=== PATIENT | female | born 1990 | race Caucasian/White ===

== ENCOUNTER 2024-01-17 10:25 | Inpatient (IN) | payer OTHER ==
[2024-01-17] MEDS ORDERED: METHYLERGONOVINE 0.2 MG/ML VIAL IM PRN (11:06)
[2024-01-17] MEDS ORDERED: fentaNYL 100 MCG/2 ML VIAL IVP PRN (11:06)
[2024-01-17] MEDS ORDERED: OXYTOCIN/SODIUM CHLORIDE 500 ML IV PRN (11:06)
[2024-01-17] MEDS ORDERED: LACTATED RINGERS 1,000 ML IV PRN (11:06)
[2024-01-17] MEDS ORDERED: miSOPROStoL 200 MCG TABLET PR PRN (11:06)
[2024-01-17] MEDS ORDERED: SODIUM CHLORIDE FLUSH 0.9% 10 ML SYRINGE IVP PRN (11:06)
[2024-01-17] MEDS ORDERED: TRANEXAMIC ACID IN NACL 1,000 MG/100 ML BAG IV PRN (11:06)
[2024-01-17] MEDS ORDERED: TERBUTALINE 1 MG/ML VIAL SUBQ PRN (11:06)
[2024-01-17] MEDS ORDERED: CARBOPROST TROMETHAMINE 250 MCG/ML VIAL IM PRN (11:06)
[2024-01-17] MEDS ORDERED: lidocaine 1% 20 ML MDV ID PRN (11:06)
[2024-01-17] MEDS ORDERED: OXYTOCIN 10 UNIT/ML VIAL IM PRN (11:06)
--- NOTE | 2024-01-17 11:14 | HISTORY & PHYSICAL EXAMINATION ---
Admit History - Visit Reason Visit Reason: Membranes rupture - : 3 Parity: 2 Premature: 1 Ectopic: 0 : 0 Care: negative: [facility] - Mother's Labs Mother's Blood Type: positive: A Mother's RH: positive: Positive GBS: positive: Group B Step Negative Rubella Status: positive: Immune - Other Maternal History Other Maternal History: HPI: This 33 yo @ 39+2 weeks by 9+1week ultrasound, discordant from LMP dating. She has been a patient of [facility] for the duration of her which has remained uncomplicated. Today, she felt a gush of fluid and was guided to presented to L&D for triage. Upon arrival her cervix was 5/70/soft and vertex palpable forebag. Agreeable to forebag rupture, clear fluid. We reviewed management options at length, discussed plan of care as per to see if labor will progress on it's own, discussed augmentation with oxytocin vs misoprostol as well. Will reevaluate after in a few hours to assess for progress. She has a questionable history mitral valve prolapse diagnosed as a teenager, but was later told it may have been an inaccurate diagnosis. Between her first and second pregnancies, she was referred to cardiology, had a normal echocardiogram, low risk holter monitor study in the same time frame. Cleared by cardiology. Dating criteria: LMP: 04/04/2023 ---> MAGGIE by LMP 01/09/2024 Initial u/s @ 9+1 wks dates DISCORDANT with LMP dating Final MAGGIE 01/22/2024; serial Exams agree OB Hx: G1: 07/15/2014 VAVD G2: 11/22/2022 G3:current Will accept blood transfusion in medical emergency. bottle packer History: Term NSVB x 1, NSVB x1. Last pap 04/2022. Denies history of gonorrhea, chlamydia, genital herpes, oral herpes or any other STI. Sexual partner does NOT have HSV (oral or genital). Medical Hx: noncontributory Surgical Hx: significant; 2 hand surgeries, 4 knee surgeries, pilonidal cyst removal, tonsillectomy Social: , lives with and children. Sexual behavior: Monogamous with male partner Stopped drinking alcohol due to . Denies current use of tobacco, marijuana or other recreational drugs. Reports that she is safe in current relationship. Family Hx: heart disease, lung disease, cancer, glaucoma, diabetes Denies family history of congenital anomalies, Cystic Fibrosis or chromosomal abnormalities. Allergies: Ketamine, environment Course: A+, antibody sceen negative Rubella immune, Varicella Immune Hep B neg, Hep C neg HIV non-reactive, RPR non-reactive GCCT negative 31# weight gain Genetic screening: FAS: 08/25/2023, WNL. Intrauterine gestation with normal cardiac features. Anterior placenta. EFW 50%. MERLENE normal. glucola: 64 Tdap: 11/02/2023 GBS: neg Physical exam: Head: Normocephalic, atraumatic Heart: RRR Lungs Lung sounds clear, No respiratory distress Abdomen gravid, soft, nontender. EFW 3700 FHR baseline 150, moderate variability, + accelerations, no decelerations Contractions irregular and mild. soft resting tone SVE 5/70/soft, vertex, membranes ruptured (clear) Bilateral LE's 1+ edema. Mood is good. Assessment: 33 yo @ 39.2 weeks gestation 9+1 wk U/S, discordant from LMP (04/04/2023) Early labor FHR Cat I GBS NEG Plan: Admit to [facility] for augmentation of labor. Continuous monitoring. Anticipate . - NST Procedure NST reactive. FHR baseline 150s, moderate variability, + accels, no decels No contractions appreciated via tocometry Meds/Allgy - Home Medications Home Medications: Ambulatory Orders Medication Instructions Recorded Confirmed Home Medications Unobtainable 01/17/24 01/17/24 [HOME MEDICATIONS UNOBTAINABLE] - Allergies Allergies/Adverse Reactions: Allergies Allergy/AdvReac Type Severity Reaction Status Date / Time ketamine AdvReac Anaphylaxis Verified 01/17/24 11:19 Review of Systems - Constitutional Constitutional: denies: Fever, Chills - Eyes Eyes: denies: Blurred vision, Spots in vision, Dipolpia - Cardiovascular Cariovascular: denies: Irregular heart rate, Chest pain, Edema - Respiratory Respiratory: denies: Wheezing, Snoring, SOB at rest - Gastrointestinal Gastrointestinal: denies: Constipation, Diarrhea, Nausea, Vomiting - Genitourinary Genitourinary: denies: Dysuria - Integumentary Integumentary: denies: Rash, Pruritis - Neurological Neurological: denies: Headache - Psychiatric Psychiatric: denies: Depression, Anxiety - All Other Systems All Other Systems: reports: Reviewed and negative Physical - Abdominal Exam Contraction Frequency (min/apart): none Uterine Resting Tone: positive: Soft - Monitoring Heart Rate Baseline: 150 Strip Review: positive: Category I - Presentation Presentation: positive: Vertex - Vaginal Exam Membranes: positive: Membranes intact Dilation (in cm): 5 Station: positive: -2 Cervical Position: positive: Midposition - Speculum Exam Speculum Exam Performed: positive: No Plan for Labor - Plan For Labor I expect patient to be DC'd or transferred within 96 hours.: Yes
[2024-01-17 11:34] LABS: BASOPHILS % (AUTO) 0.2 %; EOSINOPHILS # (AUTO) 0.1 10^3/uL (0.0-0.7); EOSINOPHILS % (AUTO) 0.9 %; HCT - HEMATOCRIT 39.2 % (37.0-47.0); HGB - HEMOGLOBIN 12.9 g/dL (12.0-16.0); LYMPHOCYTES # (AUTO) 2.8 10^3/uL (1.5-3.5); LYMPHOCYTES % (AUTO) 25.8 %; MEAN CORPUSCULAR HEMOGLOBIN 28.1 pg (27.0-31.0); MEAN CORPUSCULAR HGB CONC 32.9 g/dL (32.0-36.0); MEAN CORPUSCULAR VOLUME 85.4 fL (81.0-99.0); MEAN PLATELET VOLUME 11.6 fL (7.9-10.8); MONOCYTES # (AUTO) 0.6 10^3/uL (0.0-1.0); MONOCYTES % (AUTO) 5.8 %; NEUTROPHILS # (AUTO) 7.2 10^3/uL (1.5-6.6); NEUTROPHILS % (AUTO) 66.8 %; PLT - PLATELET COUNT 169 10^3/uL (130-450); RED BLOOD COUNT 4.59 10^6/uL (4.20-5.40); RED CELL DISTRIBUTION WIDTH 13.8 % (12.0-15.0); WHITE BLOOD COUNT 10.8 x10^3/uL (4.8-10.8)
[2024-01-17] MEDS ORDERED: SODIUM CHLORIDE FLUSH 0.9% 10 ML SYRINGE IVP SCH (12:00)
[2024-01-17] MEDS: LACTATED RINGERS 1,000 ML IV SCH (14:01)
[2024-01-17] MEDS: OXYTOCIN/SODIUM CHLORIDE 500 ML IV SCH (14:01)
[2024-01-17] MEDS ORDERED: HYDROCORTISONE 1% CREAM 28 GM TUBE PR PRN (16:19)
--- NOTE | 2024-01-17 16:22 | DELIVERY NOTE ---
Delivery Note - Labor Labor: positive: Spontaneous - Delivery Method Delivery Method: positive: Spontaneous vaginal delivery - Presentation Presentation: positive: OA - occiput anterior - Nuchal Cord Nuchal Cord: positive: None - Amniotic Fluid Description Amniotic Fluid Description: positive: Clear - Episiotomy Type Episiotomy Type: positive: None - Laceration Laceration: positive: None - [place]: positive: Placed in direct skin contact with mother, Suctioned, Stimulated, Warmed, [place] used [place] sex: positive: Male - Cord Cord: positive: 3 vessels - Placenta Placenta: positive: Intact - Estimated Blood Loss Estimated Blood Loss (in cc): 150 - Post Delivery Events Post Delivery Events: positive: Shoulder dystocia - Delivery Comments (Free Text/Narrative) Delivery Comments (Free Text/Narrative): [id number], @39+2 gestation by+1 week ultrasound presented @ 10:30 time with SROM. Cervix was 5/70/-2 and Vertex. GBS Negative. FHR pattern demonstrated 150 baseline in a category I. @13:00 provider to bedside, patient chana only infrequently (mild). Shared decision making utilized to begin oxytocin @1mu/min. After initiation, patient began to contract regularity with increasing intensity, no further titration of oxytocin needed. Unmedicated delivery. Forebag ruptured (clear) @ 11:03. Pushing began spontaneously (presumed complete) at 15:15 in hands and knees. : Normal spontaneous vaginal delivery of a viable male infant on 01/17/24 @ 15:56 in hands and knees, rotational maneuvers used to reduce posterior shoulder. The was placed on maternal abdomen, stimulated, dried and placed skin to skin. Apgars 6 @1 min and 8 @5 minutes weighing 3.364kg. Pitocin administered via IV for hemostasis. The umbilical cord was allowed to stop pulsating at which time it was doubly clamped by delivering provider and cut by FOB. 3VC. Cord blood was obtained. Fundal massage and gently cord traction applied for active management of the third stage, placenta delivered spontaneously and intact @16:05. EBL 150. Fourth stage: Uterine fundus firm and there is no excessive bleeding. The perineum, vagina and cervix were inspected and found to be intact. Vaginal and rectal examination following the repair was done. Tissues well approximated. Skin to skin initiated. Family bonding well. Both mother and baby are in stable condition.
[2024-01-17] MEDS: IBUPROFEN 800 MG TABLET PO SCH (17:26)
[2024-01-17] MEDS: ACETAMINOPHEN 500 MG TABLET PO SCH (17:26)
[2024-01-17] MEDS: WITCH HAZEL/GLYCERIN 1 PAD TOP PRN (17:28)
--- NOTE | 2024-01-17 18:43 | PHARMACY PROGRESS NOTE ---
- Best Possible Medication History Admit Date and Time: 01/17/24 1106 Processed by: Pharmacy Medications reviewed in ED?: No Medication History completed: No Patient Interview: Pt unable to participate As the person ultimately responsible for medication therapy, providers are able to order a medication from an existing home medication list in [facility] via the "Reconcile Routine" prior to Confirmation of that medication by operations support manager. Such practice is discouraged except when the physician, in their clinical judgment, deems that a medical need exists for a medication without regard to previous use.
--- NOTE | 2024-01-18 08:27 | DISCHARGE SUMMARY ---
Discharge Summary Admit Date: 01/17/24 Discharge Date: 01/18/24 Discharging Provider: ALEXA Allen/ JAMEE Gomez Code Status: Attempt Resuscitation Condition at Discharge: Good Discharge Disposition: 01 Home, Self Care - DIAGNOSES Admission Diagnoses: 33 yo @ 39.2 weeks gestation at 91+1 week u/s Discordant from LMP (04/04/2023) Early Labor FHT Cat I GBS NEG - HPI History of Present Illness: Date of Admission 01/17/2024 Date of Discharge 01/18/2024 Diagnosis on admission: 1. 33 yo @ 39.2 weeks gestation 9+1 wk u/s discordant from LMP 2. Early labor 3. FHR Cat I 4. GBS Neg Diagnosis on Discharge 1. 33 yo ppd #1 2. Status post viable male infant 3. Normal course Brief History: She is a patient of [facility] who presented on 01/17/2024 with leaking of amniotic fluid. She A forbag was ruptured and later pitocin at 1mu/min was initated. Labor progressed quickly and she delivered a viable male infant in hands and knees. No medication pain management. She spontaneously delivered a viable male infant @1556 apgars 6 and 8 at 1 and 5 minutes respectively. EBL 150 ml. intact perineum. She has been doing well in her course. She is ambulating and tolerating a regular diet. She is urinating without difficulty and her lochia is normal. Her pain is well controlled without narcotic management. She will be discharged to home today on day 1 with prescriptions for IBU and colace. She intends to follow up with [facility] in 1 week for telehealth. SHe has been given precautions to call if she has any worsening fevers, chills, abdominal pain, increasing bleeding, or foul smelling vaginal lochia. - ALLERGIES Allergies/Adverse Reactions: Allergies Allergy/AdvReac Type Severity Reaction Status Date / Time ketamine AdvReac Anaphylaxis Verified 01/17/24 11:19 - MEDICATIONS Home Medications: Ambulatory Orders Medication Instructions Recorded Confirmed Home Medications Unobtainable 01/17/24 01/17/24 [HOME MEDICATIONS UNOBTAINABLE] - PHYSICAL EXAM AT DISCHARGE General Appearance: positive: No acute distress Eyes Bilateral: positive: Normal inspection Neck: positive: Nml inspection Respiratory: positive: No respiratory distress, Breath sounds nml Cardiovascular: positive: Regular rate & rhythm, No murmur Abdomen: positive: Non-tender Skin: positive: Color nml, No rash Extremities: positive: Full ROM Neurologic/Psychiatric: positive: Oriented x3 - LABS Result Diagrams: 01/17/24 11:25
--- NOTE | 2024-01-18 09:01 | Discharge Plan ---
Discharge Plan Problem Reviewed?: Yes Disposition: Home, Self Care Condition: Good Diet: Regular Activity Restrictions: No Restrictions Shower Restrictions: No Driving Restrictions: No Weight Bearing: Full Weight Instruction Topics: Vaginal After, Self Care, Nutrition No Smoking: If you smoke, Please STOP! Call for help. Follow-up with: Diana Allen CNM, MIRIAM [Provider Admit Priv/Credential] - 1 Week
[2024-01-18 12:10] VITALS: BP 129/75
--- NOTE | 2024-01-18 18:34 | Labor Flowsheet ---
Labor Flowsheet Datetime Report Generated by CPN: 01/18/2024 18:34 Datetime: 01/18/2024 12:46 VITAL SIGNS NBP Sys/Alesia/Mean (mmHg): 125 : 60 : 75 Pulse: 76 Datetime: 01/17/2024 17:01 Membranes Ruptured Date/Time: 01/17/2024 11:03 Amniotic Fluid Odor: None Datetime: 01/17/2024 16:22 Stage of : Recovery Datetime: 01/17/2024 15:56 STAGE 2 Pushing: Coached on Pushing Datetime: 01/17/2024 15:45 FHR Baseline Rate : 145 Datetime: 01/17/2024 15:30 FHR Baseline Changes: No Baseline Change Datetime: 01/17/2024 15:15 Pushing Position: Pushing with Contractions Stage 2 Comments: all fours Datetime: 01/17/2024 15:00 UTERINE ACTIVITY Monitor Mode: External Frequency (min): 1-2 Quality: Strong Duration (sec): 40-70 Pattern: Normal: <= 5 Contractions in 10 Minutes Resting Tone (Palpate): Relaxed ASSESSMENT A Monitor Mode: Telemetry Variability: Moderate 6-25 bpm Accelerations: 15X15 Decelerations: None Category: Category I Datetime: 01/17/2024 14:45 Actions for Decelerations: IV Bolus Datetime: 01/17/2024 14:15 Contraction Comments: intermittent and irregular Comments: isolated variable required no intervention Datetime: 01/17/2024 14:03 MEDICATIONS Pitocin (milliunits): Started @ 1 Datetime: 01/17/2024 14:00 Pitocin Checklist: At Least 1 Acceleration of 15 bpm x 15 Seconds in 30 Minutes or Adequate Variabi lity; No More than 1 Late Deceleration Occurred in Past 30 Minutes; No More than 2 Variable Decelerat ions > 60 Seconds in Duration and decreasing >60 bpm in 30 minutes; No More than 5 Uterine Contractio ns in 10 Minutes for any 20 Minute Interval; Uterus Palpates Soft between Contractions Datetime: 01/17/2024 12:57 COMMUNICATION Communication: Provider at Bedside Datetime: 01/17/2024 11:03 VAGINAL EXAM Membrane Status: Ruptured Membranes Rupture Method: Artificial Amniotic Fluid Color: Clear Amniotic Fluid Amount: Small
== END 2024-01-18 17:45 | disposition home or self-care (01) | DRG 807 ==
LOC: WFO 10:25 → FBP 10:28 → WFO 11:05 → FBP 11:06
PROVIDERS: ADMIT Nurse Practitioner Obstetrics & Gynecology; ATTEND Nurse Practitioner Obstetrics & Gynecology
PROC: 10E0XZZ Delivery of Products of Conception, External Approach (ICD-10-PCS; principal; 2024-01-17)
PROC: 10907ZC Drainage of Amniotic Fluid, Therapeutic from Products of Conception, Via Natural or Artificial Opening (ICD-10-PCS; 2024-01-17)
DX: O80 Encounter for full-term uncomplicated delivery (principal); Z37.0 Single live birth; Z3A.39 39 weeks gestation of pregnancy
CPT/HCPCS: 59409; 85025; 86850; 86900; 86901; A9270; J7120

== ENCOUNTER 2024-03-07 21:03 | Outpatient (CLI) | payer OTHER ==
--- NOTE | 2024-03-07 22:17 | Ultrasound Report ---
PROCEDURE: Pelvic w/Transvaginal INDICATIONS: PELVIC PAIN, EXCESSIVE MENSTRATION TECHNIQUE: Real-time scanning was performed of the pelvic organs, with image documentation. Additional endovagi nal scanning was necessary due to incomplete visualization of the adnexal and endometrial structures by transabdominal scanning. COMPARISON: None. FINDINGS: Uterus: Uterus measures 7.8 x 4.5 x 6.1 cm anteverted positioning. Endometrium measures 4 mm. Mild po sitioned IUD, seen within the left myometrium. Ovaries: Nonenlarged right ovary measuring 5 cc. Possible follicular cyst left ovary measures 1.5 cm. Left ovary measures 12 cc. Color and spectral Doppler: flows are documented Other: No pathologic free fluid. IMPRESSION: Suspected malpositioned IUD located toward the left myometrium. Reviewed by: Tyree Christensen MD on 03/07/2024 10:16 PM PDT Approved by: Tyree Christensen MD on 03/07/2024 10:16 PM PDT Station ID: [id number]
== END 2024-03-07 21:04 | disposition home or self-care (01) ==
LOC: DI 21:03
PROVIDERS: ATTEND Nurse Practitioner Obstetrics & Gynecology
DX: R10.2 Pelvic and perineal pain (principal); N92.0 Excessive and frequent menstruation with regular cycle; Z97.5 Presence of (intrauterine) contraceptive device